=== PATIENT | female | born 1955 | race Caucasian/White ===

== ENCOUNTER 2021-01-08 06:00 | Outpatient (RCR) | payer OTHER, SELFPAY | END 2021-01-12 23:59 | disposition home or self-care (01) | LOC: MOT 06:00 | PROVIDERS: PCP Family Medicine; Referring Provider Orthopaedic Surgery; Visit Provider Orthopaedic Surgery | DX: Z47.89 Encounter for other orthopedic aftercare (principal); M18.11 Unilateral primary osteoarthritis of first carpometacarpal joint, right hand | CPT/HCPCS: 97018; 97110; 97140; 97166 ==

== ENCOUNTER 2021-01-13 06:00 | Outpatient (RCR) | payer OTHER, SELFPAY | END 2021-02-11 23:59 | disposition home or self-care (01) | LOC: MOT 06:00 | PROVIDERS: PCP Family Medicine; Referring Provider Orthopaedic Surgery; Visit Provider Orthopaedic Surgery | DX: M18.11 Unilateral primary osteoarthritis of first carpometacarpal joint, right hand (principal); Z98.890 Other specified postprocedural states | CPT/HCPCS: 97018; 97110; 97140 ==

== ENCOUNTER 2021-02-12 11:59 | Outpatient (RCR) | payer OTHER, SELFPAY | END 2021-03-03 23:59 | disposition home or self-care (01) | LOC: MOT 11:59 | PROVIDERS: PCP Family Medicine; Referring Provider Orthopaedic Surgery; Visit Provider Orthopaedic Surgery | DX: Z98.890 Other specified postprocedural states (principal); M18.11 Unilateral primary osteoarthritis of first carpometacarpal joint, right hand | CPT/HCPCS: 97018; 97110; 97140 ==

== ENCOUNTER 2021-07-26 16:50 | Outpatient (CLI) | payer OTHER, SELFPAY ==
--- NOTE | 2021-07-26 17:36 | XRR_ITS ---
PROCEDURE INFORMATION: Exam: XR Right Foot Exam date and time: 07/26/2021 5:37 PM Age: 65 years old Clinical indication: Injury or trauma; Fall; Blunt trauma; Patient HX: PT fell; C/O pain right foot-1st, 2nd, 3rd; Additional info: M79.671 - pain in right foot TECHNIQUE: Imaging protocol: XR Right foot. Views: 3 or more views. COMPARISON: No relevant prior studies available. FINDINGS: Bones/joints: Osseous structures are intact. Negative for fracture. Joint spaces are preserved. Soft tissues: Normal. XR/XR foot RT min 3V* [id number] IMPRESSION: No acute findings.
--- NOTE | 2021-07-26 17:36 | XRR_ITS ---
PROCEDURE INFORMATION: Exam: XR Right Hand Exam date and time: 07/26/2021 5:37 PM Age: 65 years old Clinical indication: Injury or trauma; Fall; Blunt trauma (contusions or hematomas); Prior surgery; Surgery date: 6+ months; Surgery type: Thumb; Patient HX: PT fell; C/O pain right hand. ; Additional info: M79.641 - pain in right hand TECHNIQUE: Imaging protocol: XR Right hand. Views: 3 or more views. COMPARISON: No relevant prior studies available. FINDINGS: Bones/joints: Sequela of trapeziectomy with suture button suspension. Osseous structures are intact. Negative for fracture. Joint spaces are preserved. Soft tissues: Normal. XR/XR hand RT min 3V* [id number] IMPRESSION: No acute findings.
== END 2021-07-26 16:51 | disposition home or self-care (01) ==
PROVIDERS: PCP Family Medicine; Visit Provider Emergency Medicine
DX: M79.641 Pain in right hand (principal); M79.671 Pain in right foot
CPT/HCPCS: 73130; 73630